=== PATIENT | male | born 1940 | race Caucasian/White ===

== ENCOUNTER 2022-07-25 07:02 | Day surgery (SDC) | payer MEDICARE ==
[2022-07-25] VITALS (11 sets, daily range): BP systolic 122–152; BP diastolic 82–100; PULSE 71–80; TEMP 97.7
[~2022-07-25] VITALS: Ht 180.3 cm; Wt 106.5 kg
[~2022-07-25 07:02] MED LIST: ASPIRIN 32325 MG/TAB PO; IMDUR 60MG60 MG/TAB PO; LOPRESSOR 225 MG/TAB PO; ZOCOR 40MG40 MG PO
[2022-07-25 07:59] LABS: HEMATOCRIT 46.4 % (42.0-52.0); MEAN CELL VOLUME 91 fl (80.0-100.0); MEAN CORPUSCULAR HEMOGLOBIN 31 pg (27-31); MEAN CORPUSCULAR HGB CONC 35 g/dl (33.0-37.0); MEAN PLATELET VOLUME 9.7 fl (7.4-10.4); PLATELET COUNT 188 K/mm3 (130-400); RED BLOOD COUNT 5.09 M/mm3 (4.20-5.60)
[2022-07-25 08:02] LABS: PROTHROMBIN TIME 11.8 SECONDS (9.7-12.8)
[2022-07-25] MEDS ORDERED: ALLEGRA 180MG180 MG PO (08:03)
[2022-07-25 08:05] LABS: PARTIAL THROMBOPLASTIN TIME 29.7 SECONDS (26.0-37.0)
[2022-07-25] MEDS ORDERED: ASPIRIN E.C. 8181 MG PO (08:07)
[2022-07-25] MEDS ORDERED: COREG 6.256.25 MG/TA PO (08:08)
[2022-07-25] MEDS ORDERED: NITROSTAT0.4 MG/TAB SL (08:10)
[2022-07-25] MEDS ORDERED: COZAAR 25MG25 MG/TAB PO (08:11)
[2022-07-25] MEDS ORDERED: TYLENOL 500MG500 MG PO (08:11)
[2022-07-25 08:20] LABS: CALCIUM 8.9 mg/dL (8.4-10.2); CREATININE, serum 0.83 mg/dL (0.72-1.25); POTASSIUM 4.2 mmol/L (3.5-4.5)
--- NOTE | 2022-07-25 09:09 | NUR ---
SEE MERGE FOR VITAL SIGNS, ASSESSMENTS, INTERVENTIONS AND MEDICATIONS GIVEN.
--- NOTE | 2022-07-25 10:30 | NUR ---
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 IN ROOM, CALL LIGHT IN REACH, REVIEWED WITH PT ON KEEPING HEAD DOWN AND RIGHT LEG STRAIGHT, TAKES JUICE AND CRACKERS
--- NOTE | 2022-07-25 11:15 | NUR ---
PT USES URINAL IN BED, VOIDED 300CC YELLOW URINE, NO C/O
--- NOTE | 2022-07-25 13:00 | NUR ---
PT HAS DIME SIZE RED AREA ON DRESSING, NOT SATUATED, AREA IS SOFT TO SURROUNDING TISSUE, WILL CON'T TO MONITOR
--- NOTE | 2022-07-25 14:30 | NUR ---
HELD PRESSURE ON GROIN SITE FOR 5 MIN, CON'T WITH SCANT AMT OF BLOOD ON DRESSING, DRESSING REMOVED, NO OOZING, SWELLING OR BLEEDING NOTED, REDRESSED WITH STERILE 2X2'S AND TEGREDERM, PT STOOD WALKED IN ROOM, AND DRESSING REMAINS NOW CLEAN AND DRY, WITH NO SWELLING.
[2022-07-25] MEDS ORDERED: IMDUR 30MG30 MG/TAB PO (14:56)
--- NOTE | 2022-07-25 15:00 | NUR ---
PT SITS UP IN CHAIR, IV D'CD INTACT, REVIEWED DISCHARGE INST. WITH PT ON ACTIVITY RESTRICTIONS, NEXT APPT. ACTIVITY, AND NEW RX TO [employer] TODAY AND INFORMATION GIVEN WITH VERBAL UNDERSTANDING. PT DISCHARGED VIA W/C TO CAR WITH AT 1520
== END 2022-07-25 15:20 | disposition home or self-care (01) ==
LOC: COL.CAR 07:02
PROVIDERS: Internal Medicine Cardiovascular Disease
DX: I25.10 Atherosclerotic heart disease of native coronary artery without angina pectoris (principal); I25.82 Chronic total occlusion of coronary artery
CPT/HCPCS: C1760; C1769; C1894; J1644; J2250; J3010; Q9967

== ENCOUNTER 2024-05-13 07:56 | Day surgery (SDC) | payer MEDICARE, OTHER ==
[2024-05-13] VITALS (12 sets, daily range): BP systolic 107–132; BP diastolic 75–97; PULSE 65–91; TEMP 97.7
[~2024-05-13] VITALS: Ht 180.3 cm; Wt 104.3 kg
[~2024-05-13 07:56] MED LIST changes: +ALLEGRA 180MG180 MG PO; +ASPIRIN E.C. 8181 MG PO; +COREG 6.256.25 MG/TA PO; +COZAAR 25MG25 MG/TAB PO; +IMDUR 30MG30 MG/TAB PO; +NITROSTAT0.4 MG/TAB SL; +TYLENOL 500MG500 MG PO
[2024-05-13] MEDS ORDERED: 1/2 NS 1,000 ML IV SCH ×2 (08:15→12:15)
[2024-05-13] MEDS ORDERED: SUDAFED 12 HOU120 MG PO (08:36)
[2024-05-13] MEDS ORDERED: LIPITOR 40MG TA40 MG PO (08:41)
[2024-05-13] MEDS ORDERED: LASIX 40MG TABL40 MG PO (08:42)
[2024-05-13] MEDS ORDERED: IBU400 MG PO (08:43)
[2024-05-13 08:55] LABS: HEMATOCRIT 42.9 % (42.0-52.0); HEMOGLOBIN 14.5 g/dl (13.5-18.0); MEAN CELL VOLUME 94 fl (80.0-100.0); MEAN CORPUSCULAR HEMOGLOBIN 32 pg (27-31); MEAN CORPUSCULAR HGB CONC 34 g/dl (33.0-37.0); MEAN PLATELET VOLUME 10.5 fl (7.4-10.4); PLATELET COUNT 152 K/mm3 (130-400); RED BLOOD COUNT 4.57 M/mm3 (4.20-5.60); REDCELL DISTRIBUTION WIDTH-CV 13.2 % (11.5-14.5)
[2024-05-13 09:01] LABS: PARTIAL THROMBOPLASTIN TIME 30.7 SECONDS (26.0-37.0)
[2024-05-13 09:03] LABS: INR 1.1 (0.8-3.0); PROTHROMBIN TIME 12.1 SECONDS (9.7-12.8)
[2024-05-13 09:34] LABS: CALCIUM 9.5 mg/dL (8.4-10.2); CREATININE, serum 0.91 mg/dL (0.72-1.25); POTASSIUM 4.1 mEq/L (3.5-4.5)
--- NOTE | 2024-05-13 10:40 | NUR ---
Please see merge documentation for record of interventions, vitals and medications administered during left and right heart cath.
[2024-05-13] MEDS ORDERED: Midazolam 2 MG/2 ML VIAL IV SCH (11:15)
[2024-05-13] MEDS ORDERED: fentaNYL 50 MCG/ML 2 ML VIAL IV SCH (11:17)
[2024-05-13] MEDS ORDERED: Iohexol 350 - 100 ML VIAL INCOR ONE (11:50)
--- NOTE | 2024-05-13 12:11 | NUR ---
Praveen is transferred back to express unit after complete heart cath with Dr. Herrera. Pt is awake and alert, pwd with reg and unlabored resps. cms intact to rt lower extremity. Rt groin site remains soft, dressing is clean and dry. BS report and handoff of care to Latisha TABARES.
[2024-05-13] MEDS ORDERED: JARDIANCE10 (13:29)
[2024-05-13] MEDS ORDERED: ASPIRIN 81M81 MG/TA2 PO (13:30)
[2024-05-13] MEDS ORDERED: ZYLOPRIM 300MG300 MG PO (13:35)
[2024-05-13] MEDS ORDERED: FEMARA PO (13:36)
[2024-05-13] MEDS ORDERED: NAMENDA5 MG PO (13:36)
[2024-05-13] MEDS ORDERED: ASPIRIN E.C. 8181 MG PO (14:00)
[2024-05-13] MEDS ORDERED: PLAVIX 75MG TAB75 MG PO (14:01)
[2024-05-13] MEDS ORDERED: ALDACTONE 25MG25 M1 PO (14:02)
[2024-05-13] MEDS ORDERED: Acetaminophen 500 MG TAB PO PRN (15:30)
--- NOTE | 2024-05-13 16:10 | NUR ---
Pt ambulated to EU10 with a steady gait, accompanied by family. Pt is scheduled for a heart cath. EKG done. IV started by RAYSHAWN Frederick. Labs drawn. Meds and HX reviewed with the pt. Consent for the procedure signed. Post procedure pt came back to EU. Groin site assessed at time of arrival. Pt was offered something to eat and drink. Accepted a water and a meal was ordered. Pt was bedrest for 4 hours. Groin site remained clean throughout the recovery. Once the recovery time was done, the pt stood up at the side of the bed. The groin site remained clean, dry, and intact. Discharge education and information discussed with the pt. No questions at this time. IV dc'd and wrapped with coban. Pt exited the unit by wheelchiar to a family members car.
== END 2024-05-13 16:01 | disposition home or self-care (01) ==
LOC: COL.CAR 07:56
PROVIDERS: Internal Medicine Cardiovascular Disease
DX: I25.10 Atherosclerotic heart disease of native coronary artery without angina pectoris (principal); Z95.1 Presence of aortocoronary bypass graft
CPT/HCPCS: C1760; C1769; C1894; J1644; J2250; J3010; Q9967